=== PATIENT | male | born 1980 | race American Indian/Alaskan Native ===

== ENCOUNTER 2021-10-06 12:20 | Emergency (ER) | payer BC ==
[2021-10-06 12:42] VITALS: BP 123/73
[2021-10-06] MEDS ORDERED: ASPIRIN 325 MG TAB PO ONE (12:43)
--- NOTE | 2021-10-06 13:20 | XRay Report ---
CHEST 2 VIEWS INDICATION: chest pain. COMPARISON: None FINDINGS: SUPPORT DEVICES: None. HEART: Within normal limits. LUNGS/PLEURA: No acute air space or interstitial disease. No pneumothorax. ADDITIONAL FINDINGS: None. IMPRESSION: 1. No acute findings. Signer Name: Ney Castro MD Signed: 10/06/2021 1:16 PM Workstation Name: [id number]
[2021-10-06 13:38] LABS: Hematocrit 40.4 % (35.5-45.6); Hemoglobin 14.2 gm/dl (11.8-15.2); Mean Corpuscular HGB Conc 35 % (32-34); Mean Corpuscular Volume 94 fl (84-94); Platelet Count 247 K/mm3 (140-440); Red Blood Count 4.31 M/mm3 (3.65-5.03); Red Cell Distribution Width 12.1 % (13.2-15.2)
[2021-10-06 14:24] LABS: Alanine Aminotransferase 53 units/L (7-56); Albumin 5.2 g/dL (3.9-5); BUN/Creatinine Ratio 13; Blood Urea Nitrogen 13 mg/dL (9-20); Calcium 9.7 mg/dL (8.4-10.2); Hemolysis Index 9
[2021-10-06 14:45] LABS: RBC Morphology Normal; Total Cells Counted 100
[2021-10-06 14:46] LABS: Platelet Estimate Consistent w Auto
--- NOTE | 2021-10-07 09:33 | Electrocardiograph Report ---
[facility] Test Date: 2021-10-06 Test Time: 12:33:05 Pat Name: CORAL LUCIANO Department: Room: Gender: M [employer] Operations Engineer In Charge: Colby EM RN : [id number] Requested By: ED DOC Order Number: [id number] Reading MD: Augustin Chaudhry Measurements Intervals [place] Rate: 75 P: 45 [place]: 213 QRS: 15 QRSD: 79 T: 5 QT: 391 QTc: 436 Interpretive Statements Sinus rhythm Prolonged [place] interval No previous ECG available for comparison Electronically Signed On 10-07-2021 9:32:55 EDT by Augustin Chaudhry
== END 2021-10-07 07:38 | disposition left against medical advice (07) ==
LOC: ED 12:20
DX: R07.9 Chest pain, unspecified (principal); R20.2 Paresthesia of skin; Z53.21 Procedure and treatment not carried out due to patient leaving prior to being seen by health care provider
CPT/HCPCS: 36415; 71046; 80053; 84484; 85007; 85025; 93005